=== PATIENT | female | born 1985 | race Caucasian/White ===

== ENCOUNTER 2023-08-14 11:46 | Emergency (ER) | payer OTHER, SELFPAY ==
[2023-08-14 11:51] VITALS: BP 119/68; PULSE 83; RESP 16; TEMP 36.6; O2SAT 100; BMI 22.7
[2023-08-14] MEDS: KETOROLAC TROMETHAMINE 30 MG/ML VIAL IM (12:22)
--- NOTE | 2023-08-14 12:54 | ED_ITS ---
HPI - Ear Problem General Chief complaint: Ear Stated complaint: EAR PAIN/ FACIAL SWELLING Time Seen by Provider: 08/14/23 11:56 Source: patient Mode of arrival: walk-in Limitations: no limitations History of Present Illness HPI Narrative: Patient was diagnosed with the strep throat by another facility and started on amoxicillin she also has been diagnosed with ear infection and possibly eardrum perforation, this all happened Thursday and the patient presenting to us on a Thursday so 5 days before arrival The patient has been taking amoxicillin she is complaining also of sore throat and left-sided lymphadenopathy Related Data Previous Rx's Medication Instructions Recorded amoxicillin 875 mg-potassium 1 tab PO Q12H #20 tabs 08/14/23 clavulanate 125 mg tablet famotidine 20 mg tablet (Pepcid) 20 mg PO BID #10 tabs 08/14/23 prednisone 20 mg tablet 40 mg PO DAILY 4 days #8 tabs 08/14/23 Allergies Allergy/AdvReac Type Severity Reaction Status Date / Time ciprofloxacin [From Cipro] AdvReac Severe Hives Verified 08/14/23 11:54 Review of Systems ROS Status of ROS 10 or more systems reviewed and unremarkable except as noted in history and below [facility] Social History Smoking status: Current every day smoker Exam Narrative Exam Narrative: Nurses notes and vital signs reviewed and patient is not hypoxic. General: Well-appearing and in no apparent distress. Skin: Warm, dry, no pallor noted. No rash. Head: Normocephalic, atraumatic. Neck: Supple, left-sided lymphadenopathy noted mostly anterior Eye: Pupils are equal, round and EOMI. No scleral icterus. Ears, Nose, Mouth, and Throat: TM are clear, no nasal mucosal hypertrophy. Bilateral tonsillar erythema noted no exudate,uvula is mid-line Cardiovascular: Regular Rate and Rhythm without murmur, gallop or rub. Respiratory: No accessory muscle use or respiratory distress. Lungs are clear to auscultation, no wheezing, rales or rhonchi Chest Wall: no tenderness Back: No midline thoracic or lumbar vertebral tenderness. No CVA tenderness Musculoskeletal: normal ROM, no calf or popliteal tenderness, no lower extremity edema/swelling GI: Abdomen is soft, non-distended. Normal bowel sounds. No masses appreciated. No tenderness to palpation. No rebound, guarding, or rigidity noted. Neurological: A&O x4. No cranial nerve dysfunction observed. No truncal ataxia. Moves all extremities. Sensation intact. Psychiatric: Cooperative and interactive. Normal mood and affect. Constitutional Vital Signs, click to edit/add: Last Vital Signs Temp 97.9 F 08/14/23 11:51 Pulse 83 08/14/23 11:51 Resp 16 08/14/23 11:51 BP 119/68 08/14/23 11:51 Pulse Ox 100 08/14/23 11:51 O2 Del Method Room Air 08/14/23 11:51 Course Vital Signs Vital signs: Vital Signs Temperature 97.9 F 08/14/23 11:51 Pulse Rate 83 08/14/23 11:51 Respiratory Rate 16 08/14/23 11:51 Blood Pressure 119/68 08/14/23 11:51 Pulse Oximetry 100 08/14/23 11:51 Oxygen Delivery Method Room Air 08/14/23 11:51 Temperature 97.9 F 08/14/23 11:51 Pulse Rate 83 08/14/23 11:51 Respiratory Rate 16 08/14/23 11:51 Blood Pressure 119/68 08/14/23 11:51 Pulse Oximetry 100 08/14/23 11:51 Oxygen Delivery Method Room Air 08/14/23 11:51 Medical Decision Making MDM Narrative Medical decision making narrative: The patient was diagnosed with strep throat almost within the last 5 days right now she will be started on Augmentin and stopping amoxicillin also she had prednisone started and supportive care with Tylenol and hydration No compromise of the airway no alarming symptoms and her ear examination was benign The patient is to follow up with primary care physician in next 2-3 days or to return to the emergency department should any of the signs or symptoms worsen or new symptoms develop. The patient agrees with the following Diagnosis and Treatment plan and the patient will be discharged home. Discharge Plan Discharge Chief Complaint: Ear Clinical Impression: Streptococcal tonsillitis, Otitis media Patient Disposition: Home, Self-Care Time of Disposition Decision: 12:04 Condition: Good Mode of Transportation: Private Vehicle Prescriptions / Home Meds: New amoxicillin-pot clavulanate 875-125 mg tablet 1 tab PO Q12H Qty: 20 0RF prednisone 20 mg tablet 40 mg PO DAILY 4 Days Qty: 8 0RF famotidine [Pepcid] 20 mg tablet 20 mg PO BID Qty: 10 0RF Instructions: Ear Infection (ED), Tonsillitis (ED) Stand Alone Forms: Portal Instructions Discharge Date/Time: 08/14/23 12:26
== END 2023-08-14 12:26 | disposition home or self-care (01) ==
LOC: ER 12:14
PROVIDERS: Emergency Provider Emergency Medicine
DX: J03.00 Acute streptococcal tonsillitis, unspecified (principal); H66.90 Otitis media, unspecified, unspecified ear; F17.210 Nicotine dependence, cigarettes, uncomplicated
CPT/HCPCS: 96372; 99284

== ENCOUNTER 2025-08-07 20:56 | Emergency (ER) | payer OTHER, SELFPAY ==
--- OUTSIDE RECORDS SUMMARY | 2024-02-24 07:00 | XMS_ITS ---
Author Organization [facility] vices Address [address] [place], [place] [id number] Care Team Providers Care Web Applications Administrator Name Role Phone Lorna Thurston Primary Care Provider Alma Delia Ayon Unavailable Zaynab Murphy Unavailable [phone] REASON FOR VISIT UDS pap Medications Medication SIG (Take, Route, Frequency, Duration) Notes Start Date End Date Status predniSONE 20 MG Oral; Duration: 13 Days ActivepredniSONE 20 MG1 tablet Orally twice daily with milk or food; Duration: 10 days10/13/2023ctiveNystatin 799462 UNIT/MLSWISH AND GARGLE 5 MILLILITERS IN MOUTH FOR 1 TO 2 MINUTES AND TH... (REFER TO PRESCRIPTION NOTES).Mouth/Throat; Duration: 10 DaysActiveClindamycin HCl 300 MGOral; Duration: 10 DaysActive Social History Sex Assigned At : Social History Observation Description Sex Assigned At Female Encounters Encounter Location Date Provider Diagnosis [facility] [address] [facility] [place] [id number] [place]/24/2024 Zaynab Murphy Plan Of Treatment No Information Progress Notes * Carmenza SORENSON DDOB:[birth year] (40 yo F)Acc No.[id number]:02/24/2024 Patient:?Carmenza SORENSON :?Zaynab MurphyDOB:1985???Age:38 Y???Sex:Female Date:02/24/2024hone:[phone]:[address] [facility], [address], [place], [id number]:Lorna Thurston Subjective: * Chief Complaints: * 1 . UDS pap. * Medical History: * Medications: T aking predniSONE 20 MG Tablet Oral , Taking Nystatin 288614 UNIT/ML Suspension SWISH AND GARGLE 5 MILLILITERS IN MOUTH FOR 1 TO 2 MINUTES AND TH... (REFER TO PRESCRIPTION NOTES). Mouth/Throat , Taking Clindamycin HCl 300 MG Capsule Oral , Taking predniSONE 20 MG Tablet 1 tablet Orally twice daily with milk or food Objective: * Vitals: Assessment: Plan: * Treatment: * Billing Information: * Visit Code: * Procedure Codes: * Electronic signature of LUISA Lake on 08/07/2025 at 09:03 PM EDTSign off status: Pending * Provider: Faraz Murphy Date: 0 02/24/2024 Generated for Printing/Faxing/eTransmitting on:?08/07/2025 09:03 PM EDT
--- OUTSIDE RECORDS SUMMARY | 2024-09-12 06:45 | XMS_ITS ---
Author Organization [facility] vices Address [address], [place] [id number] Care Team Providers Care Software Sales Name Role Phone Lorna Thurston Primary Care Provider Alma Delia Ayon REASON FOR VISIT 1 month Lower back pain Social History Sex Assigned At : Social History Observation Description Sex Assigned At Female Encounters Encounter Location Date Provider Diagnosis Main [address] [place] [id number] 09/12/2024 Lorna Thurston Plan Of Treatment No Information Progress Notes * Carmenza SORENSON DDOB:[birth year] (40 yo F)Acc No.[id number]:09/12/2024 Medical Note Patient: Rae NEWTONTRANG Carmenza Mcbride :?Lorna Thurston MDDOB:1985???Age:39 Y???Sex: FemaleDate:09/12/2024hone:[phone]:[address] [place] [address], [address], [place], [id number] Subjective: * Chief Complaints: * 1 . 1 month Lower back pain. * Medical History: Objective: * Vitals: Assessment: Plan: * Treatment: * Billing Information: * Visit Code: * Procedure Codes: * Electronic signature of Lorna Thurston MD on 08/07/2025 at 09:04 PM EDTSign off status: Pending * Provider: Damir Thurston MD Date: 1 11/13/2023 Generated for Printing/Faxing/eTransmitting on:?08/07/2025 09:04 PM SALVATORE
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
--- OUTSIDE RECORDS SUMMARY | 2025-08-07 21:04 | XMS_ITS | Clinical Summary ---
Author Organization [employer] tem Address [facility] [id number] [address] [place] [address] Care Team Providers Care Safe Deposit Attendant Name Role Phone Lorna Thurston MD Primary Care Provider [phone] Allergies Active AllergyReactionsCriticalityNoted DateCommentsCiprofloxacin HclHivesMedium 08/06/2014CephalexinAnaphylaxis,Hives,FhxpBnnw87/16/2024Morphine (Pf)Shortness Of IccnpjTcgf06/06/2019 Medications MedicationSigDispense QuantityRefillsLast FilledStart DateEnd DateStatus acetaminophen (TYLENOL EXTRA STRENGTH) 500 mg tablet Take 1 tablet (500 mg total) by mouth every 6 (six) hours as needed for pain. 30 tablet 09/13/2022ctive Additional Information Patient taking differently:500 mg oral Every 6 hours PRN, pain,Takes for toothaches, Reported on 10/11/2024 ibuprofen (MOTRIN) 800 mg tablet Take 1 tablet (800 mg total) by mouth 3 (three) times a day. 21 tablet 4Active ondansetron ODT (ZOFRAN ODT) 4 mg disintegrating tablet Dissolve 1 tablet (4 mg total) on tongue every 8 (eight) hours as needed for nausea for up to 6 doses. 6 tablet 5Active metroNIDAZOLE (FLAGYL) 500 mg tablet Take 1 tablet (500 mg total) by mouth 3 (three) times a day.07/18/2025 Discontinued ondansetron ODT (ZOFRAN ODT) 4 mg disintegrating tablet Dissolve 1 tablet (4 mg total) on tongue every 8 (eight) hours as needed for nausea for up to 10 doses. 10 tablet /04/2025Discontinued HYDROcodone-acetaminophen (NORCO) 5-325 mg per tablet Indications:Pain, dentalTake 1 tablet by mouth every 6 (six) hours as needed for pain for up to 3 days. Max Daily Amount: 4tablets 12 tablet /07/2025Expired penicillin v potassium (VEETIDS) 500 mg tablet Take 1 tablet (500 mg total) by mouth in the morning and 1 tablet (500 mg total) at noon and 1 tablet (500 mg total) in the evening and 1 tablet (500 mg total) before bedtime. Do all this for 7 days. 28 tablet /Expired Active Problems ProblemNoted DateDiagnosed DateChronic cfxvnxabqpn81/18/2024History of recurrent nvcahxftujc92/18/2024Laryngopharyngeal reflux (LPR)4Calculus of kidney 03/08/2019 Overview (03/08/2019): 03/08/19 bilateral small nonobstructing intrarenal calculi. There are no ureteral calculi nor findings of obstructive uropathy bilaterally (punctate on right; largest 4 mm on left) ?? Disc displacement, pghtzp9801/03/20193345Toixeuus34/28/2018 Overview (10/04/2024): Last seizure around 2015, no longer on meds Wjiogh6607/15/2018IUFD at 20 weeks or more of felykskmb72/27/2018 Overview (09/22/2018): No lab abnormalities Autopsy nor placental pathology done History of 2 nggjtufo52/27/2017Obesity Resolved Problems ProblemNoted DateDiagnosed DateResolved DateSupervision of normal intrauterine in multigravida in third idpfzbfxv914Chronic tension- type headache, not tnqmkpjqxee24 Overview (07/15/2018): Patient states tylenol is not working. demise in krause greater than 22 weeks gestation, antepartum Smoking (tobacco) complicating , second trimester Obesity affecting in second wzjfvuosd00/26/2018 12/30/2017 Encounters DateTypeDepartmentCare TxqwFceuhlqebgv04/07/2025 9:49 PM EDT - 07/18/2025 10:37 PM EDTEmergency [facility] [address] [place] [phone] Álvaro Aranda DO Pain, dental (Primary Dx) Discharge Disposition: Home07/18/2025Travelfrom Last 3 Months Immunizations ImmunizationAdministration DatesNext DueInfluenza, Im Trivalent Preservative 08/30/2014Influenza, Injectable, quadrivalent (PF)08/03/2018Tdap1 Family History Medical HistoryRelationNameCommentsNo Known ProblemsFatherNo Known Problems MotherAnesthesia problemsNeg HxRelationNameStatusCommentsFatherAliveMotherAlive Social History Tobacco UseTypesPacks/DayYears UsedDateSmoking Tobacco: Every KkeWpuolsxobr005.8 Started: 2002Smokeless Tobacco: Never Tobacco Cessation:Ready to Q uit: Not Asked; Counseling Given: Not Answered Alcohol UseStandard Drinks/WeekCommentsNo0 (1 standard drink = 0.6 oz pure alcohol)PHQ-2AnswerDate RecordedTotal Fpsmc031ChildcareAnswerDate GndltehfXcyxipfgfIawauku20/01/2019EmploymentAnswerDate RecordedEmploymentUnknown 03/12/2019Hunger ScreeningAnswerDate RecordedWithin the past 12 months we worried whether our food would run out before we got money to buy more.Never True07/18/2025Within the past 12 months the food we bought just didn't last and we didn't have money to get more.Never True07/18/2025Purpose - LifeAnswerDate RecordedPurpose and direction in oitkIcdigzi45/05/2021CommentsNoSex and Gender InformationValueDate RecordedSex Assigned at JyqzmAmssfz81/04/2018 6:43 PM ESTLegal YojSrubkx84/04/2015 1:03 PM EDTGender QlxablezSurbqg66/07/2018 6:43 PM ESTSexual MffkyxxrucqUzvdhxdy61/07/2018 6:43 PM EST Last Filed Vital Signs Vital SignReadingTime TakenCommentsBlood Ugqiawie113/8710 9:56 PM EDT Gmjow625707/18/2025 9:56 PM KLZNnciufvmogr12.5 ??C (97.7 ??F)07/18/2025 9:56 PM EDTRespiratory Qvkb6393 9:56 PM EDTOxygen Kzndbftyft54%07/18/2025 9:55 PM EDTInhaled Oxygen Concentration--Spqher062.3 kg (230 lb)07/18/2025 9:56 PM UXHXbqmmb858.4 cm (5')07/18/2025 9:56 PM EDTBody Mass Index44.9207/18/2025 9:56 PM EDT Plan of Treatment Health MaintenanceDue DateLast DoneCommentsTobacco Cgfudssfhg1987 Depression Boxohmyrm84/14/1999Adult BMI Follow Up Plan2005Pap Smear , 10/07/2017Influenza Fjvvioi14, 08/03/2018, 08/30/2014dult BMI Jbeudwnbj72Tobacco Screening DTaP,Tdap and Td Vaccines (2 - Td or Tdap)08/03/2028 08/03/2018 Medical Devices Not on file Procedures Procedure NamePriorityDate/TimeAssociated DiagnosisCommentsHIGH RISK HPV W/RODRIGO Wjalxnp4710/07/2017 10:37 AM EST Diagnosis unknown from Last 3 Months or Most Recently Relevant to Health Maintenance Results * 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 Specimen (Source)Anatomical Location / LateralityCollection Method / Volume Collection TimeReceived Time10/07/2017 10:37 AM EST10/07/2017 10:22 PM EST Narrative Authorizing ProviderResult TypeResult StatusGina Donnelly MDLAB BLOOD ORDERABLES Final ResultPerforming OrganizationAddressCity/State/ZIP CodePhone Number [facility] [address] [place] [address], [place] from Last 3 Months or Most Recently Relevant to Health Maintenance Insurance Advance Directives * Full Code (Latest Code Status on File) Date ActivatedDate InactivatedComments10/15/2018 10:29 AM10/17/2018 7:49 PM * Full Code Date ActivatedDate SikbwdaahzdIouyhnbf50/5/2018 10:55 PM09/16/2018 1:53 AM * Full Code Date ActivatedDate InactivatedComments06/29/2018 10:38 PM06/30/2018 12:57 AM Care Teams Team MemberRelationshipSpecialtyStart DateEnd Date Lorna Thurston MD [address] [place] [address] PCP - GeneralInternal Ddcntyvi85/4/24
--- OUTSIDE RECORDS SUMMARY | 2025-08-07 21:04 | XMS_ITS | Clinical Summary ---
Author Organization [facility] Address [address] [place] [address] Care Team Providers Care Rn Maternity Name Role Phone Unavailable Primary Care Provider Unavailabl e Social History Tobacco UseTypesPacks/DayYears UsedDateSmoking Tobacco: Never Assessed CommentsUnknownSex and Gender InformationValueDate RecordedSex Assigned at Not on fileLegal OzyPiouku82/15/2023 11:34 PM EDTGender IdentityNot on file Sexual OrientationNot on file Plan of Treatment DateTypeDepartmentCare Team (Latest Contact Info)Dtlnqzheuuv75/02/2025 2:00 PM ESTProcedure Visit EOLY Guevara OBGYMattie [address] [place] [address] [place] [id number] Leah Segovia PA [address] [place], [facility] Insurance
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
--- OUTSIDE RECORDS SUMMARY | 2025-08-07 21:04 | XMS_ITS | Patient Health Record ---
Author Organization [facility] [place] Address [address] [place] [address] Care Team Providers Care Solid Waste Management Engineer Name Role Phone Obri , Samer Primary Care Provider Unavailabl e Reason For Referral No Information Plan Of Treatment No Information Insurance Providers Payer Name Payer Address Payer Phone Subscriber Number Group Number Insured Name Patient Relationship to Insured Coverage Start Date Coverage End Date SELF PAY ON PATIENT DEMOGRAPHICS Amanda Sortoelf - patient is the epblvkr0704/18/2014 Medical (General) History Surgical History Surgery Date(Month/Year) No surgical / procedural history
[2025-08-07 21:06] VITALS: BP 152/109; PULSE 79; TEMP 36.9; O2SAT 99; BMI 44.9
--- NOTE | 2025-08-07 21:12 | CT_ITS ---
The [address] [address] Patient Name: SHAKIRA SORENSON MRN: [id number] date: 1985 Sex: F Assigned Patient Location: ER Current Patient Location: ED.MAIN Accession/Order Number: [id number] Exam Date: 08/07/2025 21:52 Report Date: 08/07/2025 22:32 At the request of: MARIA DE JESUS BACK Procedure: CT abdomen pelvis wo con CT ABDOMEN AND PELVIS WITHOUT INTRAVENOUS CONTRAST: CLINICAL HISTORY: Right flank pain COMPARISON: None TECHNIQUE: Spiral images were obtained through the abdomen and pelvis without intravenous contrast. This CT exam was performed using one or more following dose reduction techniques: Automated exposure control, adjustment of the mA and/or kV according to patient size, or use of iterative reconstruction technique. FINDINGS: Lung Bases: [Minor hypoventilatory changes.] Organs:Liver, spleen, adrenals, pancreas unremarkable. Kidneys measure size without hydronephrosis or nephrolithiasis. Gallbladder appears contracted.[ GI: Mild retained stool the colon. No bowel obstruction. Appendix is not identified. There are no pericecal moderate changes. Suture material identified involving the cecum noted.[ Pelvis:[Lobular uterus suggests fibroids. Bladder unremarkable. No suspicious adnexal mass.] Peritoneum/Retroperitoneum:No free air or fluid. No pathologically enlarged adenopathy. Aorta appears nonaneurysmal.[ Abd wall/Bones:Degenerative changes L5-S1 with bilateral pars defects and anterolisthesis[ CT/CT abdomen pelvis wo con IMPRESSION: Negative for nephrolithiasis or obstructive uropathy. Impression dictated by: Po Blair M.D. 08/07/2025 10:32 PM Dictation Location: [place] [address] Electronically authenticated by: [id number] Y Date: 08/07/2025 22:32
--- NOTE | 2025-08-07 21:14 | ED.GENADUL1 ---
Documented by User: Alla Brown 08/07/25 21:42 HPI HPI - General Adult General Chief complaint: Back Pain/Injury Stated complaint: LOWER BACK PAIN Time Seen by Provider: 08/07/25 21:07 Source: patient Mode of arrival: walk-in Limitations: no limitations History of Present Illness HPI narrative: 40 year old female presents to the ED for right flank pain, nausea. Onset was approx 2 weeks ago. She was evaluated at an urgent care. States she was treated for potential kidney stone due to bacteria and blood in her urine. She does have hx kidney stones. She completed a course of antibiotics without relief. States she was also taking Flomax. Denies fever, chills, injury, emesis, diarrhea, dyusria. The pain is worse with movement and palpation. Reports intermittent abdominal discomfort. Related Data Previous Rx's ?Medication ?Instructions ?Recorded amoxicillin 875 mg-potassium 1 tab PO Q12H #20 tabs 08/14/23 clavulanate 125 mg tablet famotidine 20 mg tablet (Pepcid) 20 mg PO BID #10 tabs 08/14/23 prednisone 20 mg tablet 40 mg (2 x 20 mg) PO DAILY 4 days 08/14/23 #8 tabs Allergies Allergy/AdvReac Type Severity Reaction Status Date / Time ciprofloxacin (From Cipro) AdvReac Severe Hives Verified 08/07/25 21:06 Opioid HPI Opioid Management Most Recent Opioid Data: Last Pain Scale 8 Today, 21:40 Last MAR Pain Assessment Today, 21:40 Review of Systems ROS Constitutional Denies: fever or chills Ears, nose, mouth, and throat Denies: neck pain Cardiovascular Denies: chest pain Respiratory Denies: shortness of breath Gastrointestinal Reports: abdominal pain and nausea; Denies: vomiting or diarrhea Genitourinary Denies: painful urination, urinary frequency, urinary urgency or blood in urine Musculoskeletal Reports: back pain; Denies: neck pain or extremity pain Integumentary/Breast Denies: rash Neurological Denies: headache, numbness in extremities, weakness in extremities or dizziness PFSH PFSH Social History Smoking status: Current every day smoker Little interest or pleasure in doing things: not at all Feeling down, depressed, or hopeless: not at all Exam Constitutional Vital Signs, click to edit/add: Last Vital Signs Temp 98.4 F 08/07/25 21:06 Pulse 79 08/07/25 21:06 Resp 19 08/07/25 21:06 BP 152/109 H 08/07/25 21:06 Pulse Ox 99 08/07/25 21:06 O2 Del Method Room Air 08/07/25 21:06 Common normals: no apparent distress and oriented x3 General appearance: cooperative HENMT Common normals: moist oral mucous membranes Eye Common normals: conjunctivae normal and no scleral icterus Neck & C-Spine Common normals: supple Chest Chest: symmetrical chest wall rise Respiratory Common normals: normal respiratory effort Effort & inspection: able to speak in complete sentences and symmetric chest movement Cardio Common normals: regular rate and regular rhythm GI Common normals: Normal to inspection, nondistended, normoactive bowel sounds present, soft to palpation and non-tender Back & Pelvis General back: no erythema, no warmth, no ecchymosis and no swelling Thoracic spine/upper back: normal to inspection and paraspinal muscle tenderness Thoracic paraspinal muscle tenderness: right; no thoracic spinal tenderness Lumbar spine/lower back: normal to inspection and paraspinal muscle tenderness Lumbar paraspinal muscle tenderness: right; no lumbar spinal tenderness Other: No rash, erythema, or wounds noted to back. Neuro Common normals: oriented x3, moves all extremities and no focal motor deficits Sensorium/orientation: awake and alert Speech: speech normal Course Vital Signs Vital signs: Vital Signs Temperature 98.4 F 08/07/25 21:06 Pulse Rate 79 08/07/25 21:06 Respiratory Rate 19 08/07/25 21:06 Blood Pressure 152/109 H 08/07/25 21:06 Pulse Oximetry 99 08/07/25 21:06 Oxygen Delivery Method Room Air 08/07/25 21:06 Temperature 98.4 F 08/07/25 21:06 Pulse Rate 79 08/07/25 21:06 Respiratory Rate 19 08/07/25 21:06 Blood Pressure 152/109 H 08/07/25 21:06 Pulse Oximetry 99 08/07/25 21:06 Oxygen Delivery Method Room Air 08/07/25 21:06 Medical Decision Making Lab Data Labs: Lab Results 08/07/25 08/07/25 Range/Units 21:30 21:35 WBC 11.0 (4.0-11.0) 10^3/uL RBC 4.14 L (4.20-5.40) 10^6/uL Hgb 12.7 (12.0-16.0) g/dL Hct 38.6 (36.0-48.0) % MCV 93.2 (81.0-99.0) fL MCH 30.7 (26.7-34.0) pg MCHC 32.9 (29.9-35.2) g/dL RDW 12.6 (11.0-15.0) % Plt Count 269 (150-450) 10^3/uL MPV 9.3 L (9.5-13.5) fL Neut % (Auto) 62.9 (43.0-75.0) % Lymph % (Auto) 29.7 (20.5-60.0) % Stephenson % (Auto) 6.1 (1.7-12.0) % Eos % (Auto) 0.5 L (0.9-7.0) % Baso % (Auto) 0.5 (0.2-2.0) % Neut # (Auto) 6.9 H (1.4-6.5) 10^3/uL Lymph # (Auto) 3.3 (1.2-3.8) 10^3/uL Stephenson # (Auto) 0.7 (0.3-0.8) 10^3/uL Eos # (Auto) 0.1 (0.0-0.7) 10^3/uL Baso # (Auto) 0.1 (0.0-0.1) 10^3/uL Abs Immat Gran (auto) 0.03 (0.00-0.03) 10^3/uL Imm/Tot Granulo (auto) 0.3 (0.0-0.5) % Sodium 144 (136-145) mmol/L Potassium 3.6 (3.5-5.1) mmol/L Chloride 104 (98-107) mmol/L Carbon Dioxide 27.4 (21.0-32.0) mmol/L Anion Gap 16.2 BUN 11.0 (7.0-18.0) mg/dL Creatinine 0.61 (0.55-1.02) mg/dL Est GFR ( Amer) >60 (>=60 mL/min/1.73m^2) Est GFR (Non-Af Amer) >60 (>=60 mL/min/1.73m^2) BUN/Creatinine Ratio 18.0 Glucose 96 (74-106) mg/dL Calcium 8.7 (8.5-10.1) mg/dL Total Bilirubin 0.2 (0.2-1.0) mg/dL AST 14 L (15-37) U/L ALT 19 (14-59) U/L Alkaline Phosphatase 78 (46-116) U/L Total Protein 6.7 (6.4-8.2) g/dL Albumin 3.7 (3.4-5.0) g/dL Globulin 3.0 g/dL Albumin/Globulin Ratio 1.2 Urine Color Lt. yellow (YELLOW) Urine Clarity Clear (CLEAR) Urine pH 6.5 (5.0-9.0) Ur Specific Jackson 1.015 (1.005-1.025) Urine Protein Negative (NEG/TRACE) mg/dL Urine Glucose (UA) Negative (NEGATIVE) mg/dL Urine Ketones Negative (NEGATIVE) mg/dL Urine Occult Blood Negative (NEGATIVE) Urine Nitrite Negative (NEGATIVE) Urine Bilirubin Negative (NEGATIVE) Urine Urobilinogen 0.2 (0.2-1.0) EU/dL Ur Leukocyte Esterase Negative (NEGATIVE) Urine HCG, Qual Negative (NEGATIVE) Imaging Data CT scan - abdomen: Radiologist's impression: ITS Impressions Abdomen/Pelvis CT 08/07/25 21:12 IMPRESSION: Negative for nephrolithiasis or obstructive uropathy. Impression dictated by: Po Blair M.D. 08/07/2025 10:32 PM Dictation Location: [place] [id number] Electronically authenticated by: [id number] Y Date: 08/07/2025 22:32 Discharge Plan Discharge Chief Complaint: Back Pain/Injury Clinical Impression: Strain of lumbar region Patient Disposition: Home, Self-Care Time of Disposition Decision: 22:51 Condition: Good Mode of Transportation: Private Vehicle Prescriptions / Home Meds: No Action amoxicillin-pot clavulanate 875-125 mg tablet 1 tab PO Q12H Qty: 20 0RF prednisone 20 mg tablet 40 mg PO DAILY 4 Days Qty: 8 0RF famotidine [Pepcid] 20 mg tablet 20 mg PO BID Qty: 10 0RF Print Language: Eritrean Instructions: Low Back Strain (ED) Referrals: [facility] [Primary Care Provider, Unknown] - 1 week Documented by User: Ted Maier DO 08/07/25 23:07 HPI HPI - General Adult General Chief complaint: Back Pain/Injury Stated complaint: LOWER BACK PAIN Time Seen by Provider: 08/07/25 21:07 History of Present Illness HPI narrative: 40 year old female presents to the ED for right flank pain, nausea. Onset was approx 2 weeks ago. She was evaluated at an urgent care. States she was treated for potential kidney stone due to bacteria and blood in her urine. She does have hx kidney stones. She completed a course of antibiotics without relief. States she was also taking Flomax. Denies fever, chills, injury, emesis, diarrhea, dyusria. The pain is worse with movement and palpation. Reports intermittent abdominal discomfort. She denies any loss of bladder/bowel function. No numbness/tingling in the extremities or perineum. No history of IVDU or fevers. Related Data Previous Rx's ?Medication ?Instructions ?Recorded amoxicillin 875 mg-potassium 1 tab PO Q12H #20 tabs 08/14/23 clavulanate 125 mg tablet famotidine 20 mg tablet (Pepcid) 20 mg PO BID #10 tabs 08/14/23 prednisone 20 mg tablet 40 mg (2 x 20 mg) PO DAILY 4 days 08/14/23 #8 tabs Allergies Allergy/AdvReac Type Severity Reaction Status Date / Time ciprofloxacin (From Cipro) AdvReac Severe Hives Verified 08/07/25 21:06 Opioid HPI Opioid Management Most Recent Opioid Data: Last Pain Scale 8 Today, 21:40 Last MAR Pain Assessment Today, 21:40 PFSH PFSH Social History Smoking status: Current every day smoker Little interest or pleasure in doing things: not at all Feeling down, depressed, or hopeless: not at all Exam Narrative Exam Narrative: CONSTITUTIONAL: Appears uncomfortable but nontoxic, answering questions and following commands appropriately SKIN: Was warm and dry. EYES: No scleral icterus. EARS, NOSE, THROAT: Moist oral mucosa. RESPIRATORY: Clear to auscultation bilaterally, no wheezes, crackles, or stridor, no use of accessory muscles CARDIOVASCULAR: Normal rate and regular rhythm. There is no S3, S4, murmur, rub. Dorsalis pedis pulses are 2+ and symmetrical. GASTROINTESTINAL: Abdomen was soft, non-tender, and non-distended. There is no guarding or rebound tenderness. No CVA tenderness. MUSCULOSKELETAL: There is reproducible tenderness to palpation in the paraspinal muscles of the right lower back. No midline L-spine tenderness. Full range of motion of the bilateral lower extremities. There was no lower extremity edema, erythema, or tenderness. NEUROLOGIC: Patient is awake and alert. 5/5 strength in the bilateral lower extremities. Sensation intact to light touch in the bilateral lower extremities facies were symmetrical. Constitutional Vital Signs, click to edit/add: Last Vital Signs Temp 98.4 F 08/07/25 21:06 Pulse 79 08/07/25 21:06 Resp 19 08/07/25 21:06 BP 152/109 H 08/07/25 21:06 Pulse Ox 99 08/07/25 21:06 O2 Del Method Room Air 08/07/25 21:06 Course Vital Signs Vital signs: Vital Signs Temperature 98.4 F 08/07/25 21:06 Pulse Rate 79 08/07/25 21:06 Respiratory Rate 19 08/07/25 21:06 Blood Pressure 152/109 H 08/07/25 21:06 Pulse Oximetry 99 08/07/25 21:06 Oxygen Delivery Method Room Air 08/07/25 21:06 Temperature 98.4 F 08/07/25 21:06 Pulse Rate 79 08/07/25 21:06 Respiratory Rate 19 08/07/25 21:06 Blood Pressure 152/109 H 08/07/25 21:06 Pulse Oximetry 99 08/07/25 21:06 Oxygen Delivery Method Room Air 08/07/25 21:06 Medical Decision Making MDM Narrative Medical decision making narrative: Patient is a 40-year-old female, recently treated for UTI and possible kidney stone, presenting to the emergency department for evaluation of right lower back/flank pain. Vital signs arrival are within normal limits. She is afebrile and hemodynamically stable. Examination as noted above. My clinical impression is that her presentation is secondary to musculoskeletal pain, possible lumbar radiculopathy. No findings that would be suggestive of cauda equina syndrome.other potential differential diagnosis includes nephrolithiasis, UTI, diverticulitis, or other intra-abdominal pathologies. IV was established and laboratory studies were obtained. CT abdomen/pelvis was ordered. She was treated symptomatically with IV Norflex, Zofran, morphine. Laboratory studies were unremarkable. No significant electrolyte or metabolic derangement. No evidence of acute kidney injury. No anemia, leukocytosis, or thrombocytopenia. No transaminitis or hyperbilirubinemia. Urinalysis unremarkable. CT abdomen/pelvis independently reviewed and interpreted by myself and radiology demonstrated no acute intra-abdominal pathologies. On reevaluation, patient feels improved. She does have a safe ride home as she was given IV morphine. I do believe the patient is stable for discharge. Patient's presentation is most likely consistent with musculoskeletal back pain. They were instructed to follow up with her PCP for further care. Return precautions were given including any new or worsening symptoms. Patient understands and agrees to the plan. FINAL IMPRESSION: #Acute musculoskeletal low back pain DISPOSITION: Discharged home CONDITION: Good Medical Records Medical records reviewed: Yes I reviewed the patient's medical records Lab Data Lab results reviewed: Yes I reviewed the patient's lab results Labs: Lab Results 08/07/25 08/07/25 Range/Units 21:30 21:35 WBC 11.0 (4.0-11.0) 10^3/uL RBC 4.14 L (4.20-5.40) 10^6/uL Hgb 12.7 (12.0-16.0) g/dL Hct 38.6 (36.0-48.0) % MCV 93.2 (81.0-99.0) fL MCH 30.7 (26.7-34.0) pg MCHC 32.9 (29.9-35.2) g/dL RDW 12.6 (11.0-15.0) % Plt Count 269 (150-450) 10^3/uL MPV 9.3 L (9.5-13.5) fL Neut % (Auto) 62.9 (43.0-75.0) % Lymph % (Auto) 29.7 (20.5-60.0) % Stephenson % (Auto) 6.1 (1.7-12.0) % Eos % (Auto) 0.5 L (0.9-7.0) % Baso % (Auto) 0.5 (0.2-2.0) % Neut # (Auto) 6.9 H (1.4-6.5) 10^3/uL Lymph # (Auto) 3.3 (1.2-3.8) 10^3/uL Stephenson # (Auto) 0.7 (0.3-0.8) 10^3/uL Eos # (Auto) 0.1 (0.0-0.7) 10^3/uL Baso # (Auto) 0.1 (0.0-0.1) 10^3/uL Abs Immat Gran (auto) 0.03 (0.00-0.03) 10^3/uL Imm/Tot Granulo (auto) 0.3 (0.0-0.5) % Sodium 144 (136-145) mmol/L Potassium 3.6 (3.5-5.1) mmol/L Chloride 104 (98-107) mmol/L Carbon Dioxide 27.4 (21.0-32.0) mmol/L Anion Gap 16.2 BUN 11.0 (7.0-18.0) mg/dL Creatinine 0.61 (0.55-1.02) mg/dL Est GFR ( Amer) >60 (>=60 mL/min/1.73m^2) Est GFR (Non-Af Amer) >60 (>=60 mL/min/1.73m^2) BUN/Creatinine Ratio 18.0 Glucose 96 (74-106) mg/dL Calcium 8.7 (8.5-10.1) mg/dL Total Bilirubin 0.2 (0.2-1.0) mg/dL AST 14 L (15-37) U/L ALT 19 (14-59) U/L Alkaline Phosphatase 78 (46-116) U/L Total Protein 6.7 (6.4-8.2) g/dL Albumin 3.7 (3.4-5.0) g/dL Globulin 3.0 g/dL Albumin/Globulin Ratio 1.2 Urine Color Lt. yellow (YELLOW) Urine Clarity Clear (CLEAR) Urine pH 6.5 (5.0-9.0) Ur Specific Jackson 1.015 (1.005-1.025) Urine Protein Negative (NEG/TRACE) mg/dL Urine Glucose (UA) Negative (NEGATIVE) mg/dL Urine Ketones Negative (NEGATIVE) mg/dL Urine Occult Blood Negative (NEGATIVE) Urine Nitrite Negative (NEGATIVE) Urine Bilirubin Negative (NEGATIVE) Urine Urobilinogen 0.2 (0.2-1.0) EU/dL Ur Leukocyte Esterase Negative (NEGATIVE) Urine HCG, Qual Negative (NEGATIVE) Imaging Data CT scan - abdomen: Attestation: I personally reviewed and interpreted this imaging study as follows: Radiologist's impression: ITS Impressions Abdomen/Pelvis CT 08/07/25 21:12 IMPRESSION: Negative for nephrolithiasis or obstructive uropathy. Impression dictated by: Po Blair M.D. 08/07/2025 10:32 PM Dictation Location: [place] [id number] Electronically authenticated by: [id number] Y Date: 08/07/2025 22:32 Discharge Plan Discharge Chief Complaint: Back Pain/Injury Clinical Impression: Strain of lumbar region Patient Disposition: Home, Self-Care Time of Disposition Decision: 22:51 Condition: Good Mode of Transportation: Private Vehicle Prescriptions / Home Meds: No Action amoxicillin-pot clavulanate 875-125 mg tablet 1 tab PO Q12H Qty: 20 0RF prednisone 20 mg tablet 40 mg PO DAILY 4 Days Qty: 8 0RF famotidine [Pepcid] 20 mg tablet 20 mg PO BID Qty: 10 0RF Print Language: E[place]rean Instructions: Low Back Strain (ED) Referrals: [facility] [Primary Care Provider, Unknown] - 1 week
[2025-08-07] MEDS: ORPHENADRINE 60 MG/2 ML VIAL IV (21:40)
[2025-08-07] MEDS: MORPHINE SULFATE 4 MG/ML VIAL IV (21:40)
[2025-08-07 21:46] LABS: Hematocrit 38.6 % (36.0-48.0); Hemoglobin 12.7 g/dL (12.0-16.0); Immature Granulocytes Abs Auto 0.03 10^3/uL (0.00-0.03); Immature Granulocytes Pct Auto 0.3 % (0.0-0.5); Lymphocytes Absolute Auto 3.3 10^3/uL (1.2-3.8); Mean Corpuscular HGB Conc 32.9 g/dL (29.9-35.2); Mean Corpuscular Hemoglobin 30.7 pg (26.7-34.0); Mean Corpuscular Volume 93.2 fL (81.0-99.0); Platelet Count 269 10^3/uL (150-450); Red Blood Count 4.14 10^6/uL (4.20-5.40); White Blood Count 11.0 10^3/uL (4.0-11.0)
[2025-08-07 21:48] LABS: Glucose Urine UA NEGATIVE (NEGATIVE)
[2025-08-07 21:49] LABS: HCG Qualitative Urine* NEGATIVE (NEGATIVE)
[2025-08-07 22:11] LABS: Alanine Aminotransferase 19 U/L (14-59); Albumin Globulin Ratio 1.2; Albumin Level 3.7 g/dL (3.4-5.0); Alkaline Phosphatase 78 U/L (46-116); Anion Gap 16.2; Aspartate Amino Transferase 14 U/L (15-37); Blood Urea Nitrogen 11.0 mg/dL (7.0-18.0); Calcium 8.7 mg/dL (8.5-10.1); Carbon Dioxide 27.4 mmol/L (21.0-32.0); Chloride 104 mmol/L (98-107); Estimated GFR (African America >60 (>=60 mL/min/1.73m^2); Estimated GFR (Non-African Ame >60 (>=60 mL/min/1.73m^2); Globulin 3.0 g/dL; Glucose 96 mg/dL (74-106); Potassium 3.6 mmol/L (3.5-5.1); Sodium 144 mmol/L (136-145); Total Protein 6.7 g/dL (6.4-8.2)
[2025-08-07 23:02] VITALS: PULSE 80; O2SAT 99
== END 2025-08-07 23:08 | disposition home or self-care (01) ==
PROVIDERS: Nurse Practitioner Family; Emergency Provider Student in an Organized Health Care Education/Training Program
DX: S39.012A Strain of muscle, fascia and tendon of lower back, initial encounter (principal); X58.XXXA Exposure to other specified factors, initial encounter; Z87.442 Personal history of urinary calculi; F17.200 Nicotine dependence, unspecified, uncomplicated; Z87.440 Personal history of urinary (tract) infections
CPT/HCPCS: 36415; 74176; 80053; 81003; 84703; 85025; 96374; 96375; 99285; J2270; J2360; J2405